=== PATIENT | female | born 1990 ===

== ENCOUNTER → 2021-04-26 | Outpatient (CLI) | payer OTHER ==
[~2021-04-26] MED LIST: OXYC1TAB9 PO; POLY119PG PO; PRENATAL PLUS1 EAC1 PO; PRENATAL TABLE1 EAC1 PO
== END | disposition home or self-care (01) ==
LOC: PRENATAL 14:00
PROVIDERS: ATTEND Obstetrics & Gynecology Maternal & Fetal Medicine
DX: O35.0XX1 Maternal care for (suspected) central nervous system malformation in fetus, fetus 1 (principal); O35.3XX1 Maternal care for (suspected) damage to fetus from viral disease in mother, fetus 1; O98.512 Other viral diseases complicating pregnancy, second trimester; Z36.89 Encounter for other specified antenatal screening; Z3A.25 25 weeks gestation of pregnancy

== ENCOUNTER 2021-06-24 12:58 | Outpatient (CLI) | payer OTHER ==
[~2021-06-24 12:58] MED LIST changes: -PRENATAL PLUS1 EAC1 PO
== END 2021-06-24 14:03 | disposition home or self-care (01) ==
LOC: PRENATAL 12:58
PROVIDERS: ATTEND Obstetrics & Gynecology Maternal & Fetal Medicine
DX: O26.843 Uterine size-date discrepancy, third trimester (principal); O36.8131 Decreased fetal movements, third trimester, fetus 1; Z36.89 Encounter for other specified antenatal screening; Z3A.33 33 weeks gestation of pregnancy

== ENCOUNTER 2021-07-08 21:39 | Outpatient (CLI) | payer OTHER ==
[2021-07-08] MEDS ORDERED: PRENATAL PLUS1 EAC1 PO (22:05)
== END 2021-07-09 14:40 | disposition home or self-care (01) ==
LOC: OBS/DEL 21:39
PROVIDERS: ATTEND Obstetrics & Gynecology
DX: O26.893 Other specified pregnancy related conditions, third trimester (principal); Z04.3 Encounter for examination and observation following other accident; O26.843 Uterine size-date discrepancy, third trimester; O36.8130 Decreased fetal movements, third trimester, not applicable or unspecified; Z3A.34 34 weeks gestation of pregnancy; W19.XXXA Unspecified fall, initial encounter; Y93.89 Activity, other specified; Y92.89 Other specified places as the place of occurrence of the external cause; Y99.8 Other external cause status

== ENCOUNTER 2021-08-02 09:15 | Inpatient (IN) | payer OTHER ==
[~2021-08-02] VITALS: Ht 157.5 cm; Wt 3.6 kg
[~2021-08-02 09:15] MED LIST changes: +PRENATAL PLUS1 EAC1 PO
[2021-08-02] MEDS ORDERED: UCERIS9 MG PO (13:34)
[2021-08-07] MEDS ORDERED: KEFLEX750 MG PO (07:56)
[2021-08-07] MEDS ORDERED: COLACE100 MG PO (07:57)
[2021-08-07] MEDS ORDERED: SIMETHICONE125 M1 PO (07:57)
[2021-08-07] MEDS ORDERED: FUSION PLUS CA1 EACH PO (07:57)
[2021-08-07] MEDS ORDERED: IBU800 MG PO (07:58)
== END 2021-08-07 12:57 | disposition home or self-care (01) | DRG 788 ==
LOC: OB/GYN 08-05 09:15 → O/R 08-05 12:12 → SURG-SUITE 08-05 17:44 → OB/GYN 08-05 20:15 → SURG-SUITE 08-07 12:57
PROVIDERS: ADMIT Obstetrics & Gynecology; ATTEND Obstetrics & Gynecology
PROC: 4A1HXFZ Monitoring of Products of Conception, Cardiac Rhythm, External Approach (ICD-10-PCS; 2021-08-05)
PROC: 10D00Z1 Extraction of Products of Conception, Low, Open Approach (ICD-10-PCS; principal; 2021-08-05 20:15)
DX: O34.211 Maternal care for low transverse scar from previous cesarean delivery (principal); O34.593 Maternal care for other abnormalities of gravid uterus, third trimester; Z37.0 Single live birth; Z3A.38 38 weeks gestation of pregnancy